=== PATIENT | female | born 1980 | race Caucasian/White ===

== ENCOUNTER 2016-10-15 20:10 | Emergency (ER) | payer OTHER ==
[2016-10-15 20:37] VITALS: BP 129/71; PULSE 66; TEMP 97.9; BMI 29.6
[2016-10-15] MEDS ORDERED: SODIUM CHLORIDE 1,000 ML IV STA (22:38)
--- NOTE | 2016-10-15 22:38 | PDOC ---
History of Present Illness - General History Source: Patient Exam Limitations: No Limitations - History of Present Illness Initial Comments: 10/15/16 22:49 The patient is a 36 year old female with no significant past medical history who presents to the ED with 5 days of nausea and nonbloody vomiting. Patient reports some mild epigastric pain with no diarrhea. He also reports dizziness, but no LOC. Patient reports lack of appetite and unable to tolerate foods/ liquids PO secondary to nausea and vomiting The patient denies fever, chills, cough, SOB, chest pain, and palpitations. The patient denies dysuria, hematuria, urgency, and frequency. Allergies: NKDA Social History: No alcohol, tobacco, or drug use reported. Past Surgical History: None reported PCP: Dr. Carly Su <Thuy Terry - Last Filed: 10/15/16 22:49> - General History Source: Patient <Lalo Rivers - Last Filed: 10/16/16 02:19> - General Chief Complaint: Nausea/Vomiting Stated Complaint: NAUSEA/VOMITING Time Seen by Provider: 10/15/16 22:38 Past History <Thuy Terry - Last Filed: 10/15/16 22:49> - Past Medical History Asthma: No Cancer: No Cardiac Disorders: No Diabetes: No HTN: No Seizures: No Thyroid Disease: No - Psycho/Social/Smoking Cessation Hx Suicidal Ideation: No Smoking History: Never smoked Hx Alcohol Use: No Drug/Substance Use Hx: No Hx Substance Use Treatment: No <Lalo Rivers - Last Filed: 10/16/16 02:19> - Past Medical History Allergies/Adverse Reactions: Allergies Allergy/AdvReac Type Severity Reaction Status Date / Time No Known Allergies Allergy Verified 10/15/16 20:34 Home Medications: Ambulatory Orders Famotidine [Pepcid] 40 mg PO BID #20 tablet 10/16/16 Ondansetron [Zofran *Odt*] 4 mg SL TID #30 od.tablet 10/16/16 Review of Systems - Review of Systems Able to Perform ROS?: Yes Comments:: 10/15/16 22:49 CONSTITUTIONAL: +lack of appetite Absent: fever, no chills, no fatigue EYES: Absent: visual changes ENT: Absent: ear pain, no sore throat CARDIOVASCULAR: Absent: chest pain, no palpitations RESPIRATORY: Absent: cough, no SOB GI: +epigastric pain, nausea, vomiting Absent: no constipation, no diarrhea GENITOURINARY: Absent: dysuria, no frequency, no hematuria MUSKULOSKELETAL: Absent: back pain, no arthralgia, no myalgia SKIN: Absent: rash NEURO: +dizzines Absent: headache <Thuy Terry - Last Filed: 10/15/16 22:49> *Physical Exam - Vital Signs Last Vital Signs Temp Pulse Resp BP Pulse Ox 97.9 F 66 18 129/71 98 10/15/16 20:35 10/15/16 20:35 10/15/16 20:35 10/15/16 20:35 10/15/16 20:35 - Physical Exam Comments: 10/15/16 22:50 GENERAL: Diaphoretic. Well-appearing, well-nourished. No apparent distress. HEENT: Normocephalic, atraumatic. PERRL, EOM intact. CARDIOVASCULAR: Normal S1, S2. Regular rate and rhythm. PULMONARY: Clear to auscultation bilaterally. ABDOMEN: Soft, non-distended, non-tender. EXTREMITIES: Normal ROM in all four extremities. No gross deformities. SKIN: Warm, dry. No rash NEUROLOGICAL: No focal neurological deficits. <MaraThuy - Last Filed: 10/15/16 22:49> - Vital Signs Last Vital Signs Temp Pulse Resp BP Pulse Ox 97.9 F 66 18 129/71 98 10/15/16 20:35 10/15/16 20:35 10/15/16 20:35 10/15/16 20:35 10/15/16 20:35 <Lalo Rivers - Last Filed: 10/16/16 02:19> ED Treatment Course - Medications Given in the ED: ED Medications Discontinued Medications Generic Name Dose Route Start Last Admin Trade Name Marekq PRN Reason Stop Dose Admin Ondansetron HCl 4 mg 10/15/16 22:40 10/15/16 22:46 Zofran Injection IVPUSH 10/15/16 22:41 4 mg ONCE STA Administration <Thuy Terry - Last Filed: 10/15/16 22:49> - LABORATORY CBC & Chemistry Diagram: 10/16/16 00:08 <Lalo Rivers - Last Filed: 10/16/16 02:19> Medical Decision Making - Medical Decision Making 10/16/16 02:19 Dr. Rivers: The scribe's documentation has been prepared under my direction and personally reviewed by me in its entirery. I confirm that the note above accurately reflects all work, treatment, procedures, and medical decision making performed by me. <Lalo Rivers - Last Filed: 10/16/16 02:19> *DC/Admit/Observation/Transfer - Attestations Scribe Attestion: 10/15/16 22:50 Documentation prepared by Thuy Terry, acting as biomedical technician for Lalo Rivers MD. <Thuy Terry - Last Filed: 10/15/16 22:49> - Discharge Dispostion Admit: No <Lalo Rivers - Last Filed: 10/16/16 02:19> Diagnosis at time of Disposition: Nausea & vomiting Qualifiers: Vomiting type: unspecified Vomiting Intractability: non-intractable Qualified Code(s): R11.2 - Nausea with vomiting, unspecified - Discharge Dispostion Disposition: HOME Condition at time of disposition: Stable - Referrals Referrals: Carly Villar MD [Primary Care Provider] - - Patient Instructions Printed Discharge Instructions: DI for Nausea -- Adult, DI for Vomiting -- Adult Print Language: MOROCCAN
[2016-10-15] MEDS ORDERED: ONDANSETRON 4 MG/2 ML VIAL IVPUSH STA (22:40)
[2016-10-15] MEDS ORDERED: FAMOTIDINE 20 MG/50 ML IVPB 20 MG in PREMIX 50 IVPB ONE (22:40)
[2016-10-15] MEDS ORDERED: FAMOTIDINE 20 MG/50 ML IVPB 50 ML IVPB ONE (22:43)
[2016-10-15] MEDS ORDERED: ONDANSETRON 4 MG/2 ML VIAL ONE (22:43)
[2016-10-16 00:49] LABS: BASOPHIL 0.5 % (0-2.0); EOSINOPHIL 0.9 % (0-4.5); MCH 26.2 pg (25.7-33.7); MCHC 32.8 g/dl (32.0-36.0); MEAN CELL VOLUME 79.9 fl (80-96); PLATELET COUNT 238 K/MM3 (134-434); RDW 13.9 % (11.6-15.6); WHITE BLOOD COUNT 4.8 K/mm3 (4.0-10.0)
[2016-10-16 00:55] LABS: URINE APPEARANCE CLEAR; URINE BILIRUBIN NEGATIVE (NEGATIVE); URINE BLOOD NEGATIVE (NEGATIVE); URINE COLOR AMBER; URINE GLUCOSE (UA) NEGATIVE (NEGATIVE); URINE KETONE NEGATIVE (NEGATIVE); URINE LEUK ESTERASE NEGATIVE (NEGATIVE); URINE NITRITE NEGATIVE (NEGATIVE); URINE UROBILINOGEN 2.0 E.U/dl E.U./dl (0.2-1.0)
[2016-10-16 01:01] LABS: URINE PROTEIN 1+ (NEGATIVE)
[2016-10-16 02:26] LABS: URINE MUCUS MANY; URINE RBC 1 /hpf (0-3); URINE WBC 1 /hpf (3-5)
[2016-10-16 02:37] LABS: CALCIUM 8.7 mg/dL (8.5-10.1); CREATININE 0.7 mg/dL (0.55-1.02)
== END 2016-10-16 02:26 | disposition home or self-care (01) ==
LOC: JER 20:10
PROC: 3E033GC Introduction of Other Therapeutic Substance into Peripheral Vein, Percutaneous Approach (ICD-10-PCS; principal; 2016-10-15)
PROC: 3E0337Z Introduction of Electrolytic and Water Balance Substance into Peripheral Vein, Percutaneous Approach (ICD-10-PCS; 2016-10-15)
DX: R11.2 Nausea with vomiting, unspecified (principal)
CPT/HCPCS: 36415; 80048; 81003; 81015; 82150; 83690; 83735; 85025; 99282-25

== ENCOUNTER 2017-06-15 05:43 | Emergency (ER) | payer OTHER ==
[2017-06-15 06:26] VITALS: BMI 29.5
[2017-06-15] MEDS ORDERED: ONDANSETRON 4 MG/2 ML VIAL IVPUSH ONE (06:35)
[2017-06-15] MEDS ORDERED: SODIUM CHLORIDE 1,000 ML IV STA (06:35)
[2017-06-15] MEDS ORDERED: morphine CARPU-JECT 4 MG/1 ML DISP.SYRIN IVPUSH ONE (06:35)
[2017-06-15] MEDS ORDERED: PANTOPRAZOLE SODIUM 40 MG in SODIUM CHLORIDE 100 ML IVPB ONE (06:35)
[2017-06-15] MEDS ORDERED: morphine CARPU-JECT 10 MG/1 ML DISP.SYRIN ONE (06:43)
[2017-06-15] MEDS ORDERED: ONDANSETRON 4 MG/2 ML VIAL ONE (06:43)
[2017-06-15] MEDS ORDERED: PANTOPRAZOLE SODIUM 100 ML IVPB ONE (06:43)
--- NOTE | 2017-06-15 06:45 | PDOC ---
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 Patient state symptoms began 1 hour ago w/ epigastric pain/pressure and vomiting. Patient reports last meal was 7pm. Last BM 1 hour ago. LNMP: May 10. Patient denies fever, CP, Back pain, diff breathing, rash, cough, congestion, dysuria, hematuria, or any other complaints at this time. Timing/Duration: reports: other (Sudden Onset.) Quality: reports: moderate Abdominal Pain Onset Location: reports: epigastric Pain Radiation: reports: no radiation Activities at Onset: denies: none, exertion, emotional upset, rest, sleep, no specific activity, eating, working, sexual intercourse, other Past History - Travel Traveled outside of the country in the last 30 days: No Close contact w/someone who was outside of country & ill: No - Past Medical History Allergies/Adverse Reactions: Allergies Allergy/AdvReac Type Severity Reaction Status Date / Time No Known Allergies Allergy Verified 06/15/17 06:24 Home Medications: Ambulatory Orders Famotidine [Pepcid] 40 mg PO BID #20 tablet 10/16/16 Ondansetron [Zofran *Odt*] 4 mg SL TID #30 od.tablet 10/16/16 Asthma: No Cancer: No Cardiac Disorders: No Diabetes: No HTN: No Seizures: No Thyroid Disease: No - Suicide/Smoking/Psychosocial Hx Smoking History: Never smoked Have you smoked in the past 12 months: No Information on smoking cessation initiated: No Hx Alcohol Use: No Drug/Substance Use Hx: No Hx Substance Use Treatment: No Abd/GI Specific PMHX - Complaint Specific PMHX Colitis: No Diverticulitis: No Gall Bladder Disease: No GERD: No Hepatitis: No Irritable Bowel Synd (IBS): No Pancreatitis: No GI Ulcer Disease: No Review of Systems - Review of Systems Able to Perform ROS?: Yes Is the patient limited [place] proficient: No Constitutional: No: Chills, Diaphoresis, Fever Cardiac (ROS): No: Chest Pain, Irregular Heart Rate, Chest Tightness ABD/GI: Yes: Nausea, Vomiting, Abdominal cramping (Epigastric). No: Constipated , Diarrhea, Poor Appetite, Poor Fluid Intake : No: Burning, Dysuria, Flank Pain, Hematuria Musculoskeletal: No: Back Pain Integumentary: No: Bruising, Dryness, Erythema, Rash Neurological: No: Headache All Other Systems: Reviewed and Negative *Physical Exam - Vital Signs Last Vital Signs Temp Pulse Resp BP Pulse Ox 63 14 117/57 100 06/15/17 06:24 06/15/17 06:24 06/15/17 06:24 06/15/17 06:24 - Physical Exam General Appearance: Yes: Nourished, Appropriately Dressed, Moderate Distress. No: Apparent Distress, Mild Distress, Severe Distress Neck: positive: Trachea midline, Normal Thyroid, Supple. negative: Rigid, Stridor, Lymphadenopathy (R), Lymphadenopathy (L), Rigidity, Tender lateral, Tender midline Respiratory/Chest: positive: Lungs Clear, Normal Breath Sounds. negative: Chest Tender, Respiratory Distress, Accessory Muscle Use, Labored Respiration, Rapid RR, Decreased Breath Sounds, Paradoxal Breathing, Rhonchi, Stridor, Wheezing Cardiovascular: positive: Regular Rhythm, Regular Rate Gastrointestinal/Abdominal: positive: Normal Bowel Sounds, Tender, Soft, Guarding, Rebound (Epigastric region), Tenderness (Epigastric region). negative : Distended Musculoskeletal: positive: Normal Inspection. negative: CVA Tenderness, Decreased Range of Motion, Vertebral Tenderness Extremity: positive: Normal Capillary Refill, Normal Inspection, Normal Range of Motion. negative: Pedal Edema, Swelling, Calf Tenderness, Erythema, Inflammation Integumentary: positive: Normal Color, Dry, Warm Neurologic: positive: water carter II-XII NML intact, Fully Oriented, Alert, Normal Mood/ Affect, Normal Response, Motor Strength 5/5 ED Treatment Course - RADIOLOGY Radiology Studies Ordered: Category Date Time Status GALLBLADDER US [US] Stat Ultrasound 06/15/17 06:35 Ordered
[2017-06-15 07:12] LABS: BASOPHIL 0.3 % (0-2.0); EOSINOPHIL 0.2 % (0-4.5); MCH 25.1 pg (25.7-33.7); MCHC 32.6 g/dl (32.0-36.0); MEAN PLT VOLUME 8.2 fl (7.5-11.1); PLATELET COUNT 258 K/MM3 (134-434); RDW 14.2 % (11.6-15.6); WHITE BLOOD COUNT 8.9 K/mm3 (4.0-10.0)
[2017-06-15 07:30] LABS: ALBUMIN 3.5 g/dl (3.4-5.0); AMYLASE 108 U/L (25-115); ANION GAP 8 (8-16); CALCIUM 8.6 mg/dL (8.5-10.1); CO2 24 mmol/L (21-32); CREATININE 0.6 mg/dL (0.55-1.02); GLUCOSE,RANDOM 119 mg/dL (74-106); SGOT/AST 13 U/L (15-37); SGPT/ALT 22 U/L (12-78)
[2017-06-15 07:31] LABS: ALK PHOS 111 U/L (45-117); BILIRUBIN,TOTAL 0.3 mg/dL (0.2-1.0); TOT PROT 7.1 g/dl (6.4-8.2)
--- NOTE | 2017-06-15 07:49 | PDOC ---
*Physical Exam - Vital Signs Last Vital Signs Temp Pulse Resp BP Pulse Ox 63 14 117/57 100 06/15/17 06:24 06/15/17 06:24 06/15/17 06:24 06/15/17 06:24 - Physical Exam Comments: 06/15/17 07:48 pt appears comfortable at this time. General Appearance: Yes: Nourished, Appropriately Dressed HEENT: positive: EOMI, KATERINA Respiratory/Chest: positive: Lungs Clear, Normal Breath Sounds Cardiovascular: positive: Regular Rhythm, Regular Rate Gastrointestinal/Abdominal: positive: Normal Bowel Sounds, Tender (epigastric 3/ 10 pain ) Musculoskeletal: positive: Normal Inspection Extremity: positive: Normal Capillary Refill Integumentary: positive: Normal Color, Dry, Warm Neurologic: positive: Fully Oriented, Alert, Normal Mood/Affect, Normal Response , Motor Strength 01/09 ED Treatment Course - LABORATORY CBC & Chemistry Diagram: 06/15/17 06:50 06/15/17 06:50 - ADDITIONAL ORDERS Additional order review: 06/15/17 06:50 RBC 4.95 MCV 77.0 L MCHC 32.6 RDW 14.2 MPV 8.2 Neutrophils % 78.0 D Lymphocytes % 16.2 D Monocytes % 5.3 Eosinophils % 0.2 Basophils % 0.3 - Medications Given in the ED: ED Medications Discontinued Medications Generic Name Dose Route Start Last Admin Trade Name Marekq PRN Reason Stop Dose Admin Pantoprazole Sodium 40 mg/ 100 mls @ 200 mls/hr 06/15/17 06:35 06/15/17 06:57 Sodium Chloride IVPB 06/15/17 07:04 200 mls/hr ONCE ONE Administration Sodium Chloride 1,000 mls @ 1,000 mls/hr 06/15/17 06:35 06/15/17 06:57 Normal Saline - IV 06/15/17 07:34 1,000 mls/hr ASDIR STA Administration Morphine Sulfate 4 mg 06/15/17 06:35 06/15/17 06:57 Morphine Injection - IVPUSH 06/15/17 06:36 4 mg ONCE ONE Administration Ondansetron HCl 4 mg 06/15/17 06:35 06/15/17 06:57 Zofran Injection IVPUSH 06/15/17 06:36 4 mg ONCE ONE Administration Medical Decision Making - Medical Decision Making 06/15/17 07:48 cc: epigastric pain pt states her pain is improved after medications awaiting US, labs 06/15/17 09:56 US labs reviewed. Pt feels better and wants to go home. will dc home with follow up with Horticulture Superintendent and her PMD. *DC/Admit/Observation/Transfer Diagnosis at time of Disposition: Pain Gastritis Qualifiers: Gastritis type: other gastritis Chronicity: acute Gastritis bleeding: without bleeding Qualified Code(s): K29.00 - Acute gastritis without bleeding; K29.00 - Acute gastritis without bleeding - Discharge Dispostion Disposition: HOME Condition at time of disposition: Good - Referrals Referrals: Carly Villar MD [Primary Care Provider] - Joni Johnson MD [Staff Physician] - - Patient Instructions Additional Instructions: bland diet as tolerated avoid any alcohol, avoid fatty foods, fried foods take over the counter TUMS as needed follow with the risk management specialist Dr. Johnson this week you have been given copies of the labs and the ultrasound to take with you dieta suave makayla tolerado evitar cualquier alcohol, evitar los alimentos grasos, los alimentos fritos antione el contador TUMS segn sea necesario siga con el gastroenterlogo Dr. Johnson esta semana se le winn entregado copias de los laboratorios y el ultrasonido para llevar con usted Print Language: MALTESE
[2017-06-15 08:33] LABS: URINE APPEARANCE CLEAR; URINE BILIRUBIN NEGATIVE (NEGATIVE); URINE BLOOD 2+ (NEGATIVE); URINE COLOR STRAW; URINE GLUCOSE (UA) NEGATIVE (NEGATIVE); URINE KETONE NEGATIVE (NEGATIVE); URINE NITRITE NEGATIVE (NEGATIVE); URINE PROTEIN NEGATIVE (NEGATIVE); URINE UROBILINOGEN NEGATIVE mg/dL (0.2-1.0)
[2017-06-15 08:39] LABS: URINE BACTERIA RARE /hpf (NONE SEEN); URINE MUCUS RARE; URINE RBC 46 /hpf (0-3); URINE WBC <1 /hpf (3-5)
[2017-06-15 09:57] VITALS: BP 100/59; PULSE 71; TEMP 97.9
[2017-06-15 16:38] LABS: URINE LEUK ESTERASE Negative (NEGATIVE)
== END 2017-06-15 10:00 | disposition home or self-care (01) ==
LOC: JER 05:43
PROC: 3E033NZ Introduction of Analgesics, Hypnotics, Sedatives into Peripheral Vein, Percutaneous Approach (ICD-10-PCS; principal; 2017-06-15)
PROC: 3E033GC Introduction of Other Therapeutic Substance into Peripheral Vein, Percutaneous Approach (ICD-10-PCS; 2017-06-15)
PROC: 3E0337Z Introduction of Electrolytic and Water Balance Substance into Peripheral Vein, Percutaneous Approach (ICD-10-PCS; 2017-06-15)
DX: K29.00 Acute gastritis without bleeding (principal)
CPT/HCPCS: 36415; 76705-TC; 80053; 81003; 81015; 82150; 83690; 84703; 85025; 99283-25

== ENCOUNTER 2018-12-17 21:41 | Emergency (ER) | payer OTHER ==
[2018-12-17 22:03] VITALS: BP 102/48; PULSE 91; TEMP 98.6; BMI 28.7
--- NOTE | 2018-12-17 23:59 | PDOC ---
History of Present Illness - General Chief Complaint: Sore Throat Stated Complaint: THROAT PAIN Time Seen by Provider: 12/17/18 23:59 - History of Present Illness Initial Comments: 12/18/18 00:00 38 year old woman with a history of gastritis who presents with 5 days of sore throat and dry cough that is worse at night. She took Tylenol, Advil and Robitussin without relief. No fevers no prdocution mild headache no chest pain, no shortness of breath no long flights or recent travel Past History - Past Medical History Allergies/Adverse Reactions: Allergies Allergy/AdvReac Type Severity Reaction Status Date / Time No Known Allergies Allergy Verified 12/17/18 22:03 Home Medications: Ambulatory Orders Benzonatate [Tessalon Pearls -] 100 mg PO TID #21 capsule 12/18/18 Asthma: No Cancer: No Cardiac Disorders: No COPD: No Diabetes: No HTN: No Seizures: No Thyroid Disease: No - Surgical History Abdominal Surgery: No - Immunization History Immunization Up to Date: No - Suicide/Smoking/Psychosocial Hx Smoking History: Never smoked Have you smoked in the past 12 months: No Information on smoking cessation initiated: No Hx Alcohol Use: No Drug/Substance Use Hx: No Substance Use Type: None Hx Substance Use Treatment: No *Physical Exam - Vital Signs Last Vital Signs Temp Pulse Resp BP Pulse Ox 98.6 F 91 H 18 102/48 L 100 12/17/18 22:01 12/17/18 22:01 12/17/18 22:01 12/17/18 22:01 12/17/18 22:01 - Physical Exam Comments: 12/18/18 01:13 negative exam Medical Decision Making - Medical Decision Making 12/18/18 01:12 ED Course ddx viral syndrome vs bronchitis r/o pna vs strep group a strep: negative 12/18/18 02:54 *DC/Admit/Observation/Transfer Diagnosis at time of Disposition: Viral syndrome, Sore throat - Discharge Dispostion Disposition: HOME Condition at time of disposition: Stable Decision to Admit order: No - Prescriptions Prescriptions: Benzonatate [Tessalon Pearls -] 100 mg PO TID #21 capsule - Referrals Referrals: [facility] [Provider Group] - Patient Instructions Printed Discharge Instructions: DI for Viral Pharyngitis Additional Instructions: You were seen in the ED for complaints of cough and sore throat In the ED you were evaluated with labwork and imaging. Your results were unremarkable. There does not appear to be an acute need for immediate hospitalization. You are advised to follow up with your Primary Care Physician within 1 week. You were given a referral to our Internal Medicine clinic. You were given a prescription for Tessalon Perle cough medication. Please take as indicated. Return to the ED immediately if you experience worsening cough, blood in the cough, chest pain, shortness of breath, fever, nausea, vomiting or loss of consciousness. Usted fue visto en el servicio de urgencias por quejas de tos y dolor de garganta. En el servicio de urgencias se le evalu con trabajo de laboratorio e imgenes. Peggy resultados no fueron notables. No parece janell carol necesidad aguda de hospitalizacin inmediata. Se recomienda realizar un seguimiento con brian mdico de atencin primaria dentro de 1 semana. Le dieron carol referencia a nuestra clnica de medicina interna. Recibieron carol receta para el medicamento para la tos Tessalon Perle. Por favor tome makayla se indica. Regrese a la romaine de urgencias de inmediato si experimenta un empeoramiento de la tos, jordi al toser, dolor en el pecho, dificultad para respirar, fiebre, nuseas, vmitos o prdida del conocimiento. - Post Discharge Activity
--- NOTE | 2018-12-18 00:39 | PDOC ---
Attending Attestation - Resident Resident Name: Eva Linder - ED Attending Attestation I have performed the following: I have examined & evaluated the patient, The case was reviewed & discussed with the resident, I agree w/resident's findings & plan - HPI HPI: 12/19/18 19:50 Pt comes with cough and sore throat. Afebrile in the ER. No significant PMHx. - Physicial Exam PE: 12/19/18 19:50 Agree with resident exam. - Medical Decision Making 12/19/18 19:50 Pt is rapid strep negative and cxr normal. We will discharge with tessalon perles for cough. No need for abx at this time. Pt can follow with PMD or clinic.
[2018-12-18 01:48] LABS: HCG,QUALITATIVE URINE Negative
[2018-12-18 01:57] LABS: EPI CELLS 3.1 /HPF (0-5/HPF); PH,URINE 5.5 (5.0-8.0); URINE APPEARANCE CLEAR; URINE BILIRUBIN NEGATIVE (NEGATIVE); URINE CASTS 4 /hpf (0-8); URINE COLOR YELLOW; URINE GLUCOSE (UA) NEGATIVE (NEGATIVE); URINE KETONE NEGATIVE (NEGATIVE); URINE LEUK ESTERASE 1+ (NEGATIVE); URINE NITRITE NEGATIVE (NEGATIVE); URINE PROTEIN NEGATIVE (NEGATIVE); URINE RBC 2 /hpf (0-4); URINE WBC 7 /hpf (0-5)
--- NOTE | 2018-12-20 10:36 | EKG ---
Test Reason : Blood Pressure : / mmHG Vent. Rate : 081 BPM Atrial Rate : 081 BPM P-R Int : 166 ms QRS Dur : 078 ms QT Int : 388 ms P-R-T Axes : 030 081 045 degrees QTc Int : 450 ms NORMAL SINUS RHYTHM NORMAL ECG NO PREVIOUS ECGS AVAILABLE Confirmed by HARSHAL HOPE MD ([id number]) on 12/20/2018 10:36:10 AM Referred By: Confirmed By:HARSHAL HOPE MD
== END 2018-12-18 03:09 | disposition home or self-care (01) ==
LOC: JER 21:41 → JERFT 21:41 → JER 12-18 03:09
DX: J02.0 Streptococcal pharyngitis (principal); B34.9 Viral infection, unspecified
CPT/HCPCS: 71045-TC-FY; 81003; 84703; 87070; 87880; 93005; 93010; 99282-25

== ENCOUNTER 2019-08-21 02:33 | Inpatient (IN) | payer OTHER ==
--- NOTE | 2019-08-21 03:56 | PDOC ---
History of Present Illness - General Chief Complaint: Pain Stated Complaint: PAIN - History of Present Illness Initial Comments: Juliette Abel is a 39yo woman with no reported medical problems who presents to the ED with right upper abdominal pain and nausea since Thursday. She reports that the pain started after she ate soup for dinner. She tried taking ibuprofen at home without relief of the pain. She reports persistent pain that does not change with eating, bowel movements, or position. She denies any diarrhea, constipation, recent travel, unusual foods, sick contacts, or previous episodes of pain. Past History - Past Medical History Allergies/Adverse Reactions: Allergies Allergy/AdvReac Type Severity Reaction Status Date / Time No Known Allergies Allergy Verified 08/21/19 02:39 Home Medications: Ambulatory Orders Acetaminophen [Tylenol] 650 mg PO PRN 12/18/18 Benzonatate [Tessalon Pearls -] 100 mg PO TID #21 capsule 12/18/18 Asthma: No Cancer: No Cardiac Disorders: No COPD: No Diabetes: No HTN: No Seizures: No Thyroid Disease: No - Surgical History Abdominal Surgery: No - Immunization History Immunization Up to Date: No - Psycho Social/Smoking Cessation Hx Smoking History: Never smoked Have you smoked in the past 12 months: No Information on smoking cessation initiated: No Hx Alcohol Use: No Drug/Substance Use Hx: No Substance Use Type: None Hx Substance Use Treatment: No Review of Systems - Review of Systems Comments:: General: No fevers, no chills, no weight or appetite change, no malaise HEENT: No changes in vision, no changes in hearing, no congestion, no sore throat CV: No chest pain, no palpitations, no LE edema Pulm: No SOB, no cough, no wheezing GI: See HPI : No frequency, no urgency, no dysuria Musc: No back pain, no joint swelling, no recent injury Skin: No rash, no lesions, no erythema Endo: No excessive thirst, no heat/cold intolerance Heme: No unusual bruising or bleeding, no swollen glands Neuro: No syncope, no numbness/tingling, no focal weakness Vasc: No claudication Psych: No recent change in mood, no SI or HI *Physical Exam - Vital Signs Last Vital Signs Temp Pulse Resp BP Pulse Ox 98.3 F 83 20 125/77 98 08/21/19 02:36 08/21/19 02:36 08/21/19 02:36 08/21/19 02:36 08/21/19 02:36 - Physical Exam General: Comfortable, no acute distress HEENT: PERRL, EOMI, MMM, voice normal, normal neck ROM, no LAD Cards: RRR, no murmur appreciated Pulm: Comfortable on room air, clear to auscultation bilaterally Abd: Soft, nondistended. TTP in RUQ. No rebound, no guarding. Questionable gimenez's sign Ext: Atraumatic. No LE edema. ROM intact. WWP Skin: Normal color, no rashes or lesions Neuro: A&Ox3, CN grossly intact, normal speech, motor/sensory grossly intact and symmetric Psych: Mood appropriate to situation ED Treatment Course - LABORATORY CBC & Chemistry Diagram: 08/21/19 04:28 08/21/19 04:28 Medical Decision Making - Medical Decision Making 08/21/19 03:46 Juliette Abel is a 39yo woman with no reported medical problems who presents to the ED with right upper abdominal pain and nausea since Thursday. - Suspect gallbladder pathology inc biliary colic, less likely cholecystitis w/ o fever or vomiting. Possibly pancreatitis. Less likely pulmonary complaint as she does not have cough, fever, but cannot exclude. - CBC, CMP, mag, coags, T&S for possible surgical pathology - IVF, acetaminophen - POCUS, will need formal US as well 08/21/19 06:51 - Labs unremarkable - POCUS abd completed, no stones seen in gallbladder - Pt reports minimal improvement in pain. Has been burping frequently. Will give famotidine and maalox for continued symptoms 08/21/19 07:13 - Sign out given to Dr Yoder for the remainder of her ED care. Discussed with Dr Yuval Lugo PGY2 Discharge - Discharge Information Problems reviewed: Yes Clinical Impression/Diagnosis: RUQ pain - Follow up/Referral - Patient Discharge Instructions - Post Discharge Activity
[2019-08-21] MEDS ORDERED: ACETAMINOPHEN 1000 MG/100 ML VIAL (NON FORMULARY) IVPB ONE (04:29)
[2019-08-21] MEDS ORDERED: SODIUM CHLORIDE 0.9% 500 ML INFUS.BAG IV ONE (04:29)
[2019-08-21] MEDS ORDERED: ACETAMINOPHEN INJECTION 100 ML IVPB ONE (04:45)
[2019-08-21 05:22] LABS: BASO % 0.3 % (0-2.0); EOS % 0.3 % (0-4.5); HEMATOCRIT 39.8 % (32.4-45.2); HEMOGLOBIN 13.4 GM/dL (10.7-15.3); LYMPH % 18.4 % (8-40); MCH 27.9 pg (25.7-33.7); MCHC 33.8 g/dl (32.0-36.0); MEAN CELL VOLUME 82.7 fl (80-96); MEAN PLT VOLUME 8.1 fl (7.5-11.1); MONO % 4.5 % (3.8-10.2); NEUT % 76.5 % (42.8-82.8); PLATELET COUNT 273 K/MM3 (134-434); RBC 4.81 M/mm3 (3.60-5.2); RDW 12.8 % (11.6-15.6); WHITE BLOOD COUNT 7.1 K/mm3 (4.0-10.0)
[2019-08-21 05:40] LABS: INR 0.9 (0.83-1.09); PROTHROMBIN TIME (PATIENT) 10.6 SEC (9.7-13.0)
[2019-08-21 05:43] LABS: ACTIVATED PTT 38.7 SECONDS (25.2-36.5)
[2019-08-21 05:52] LABS: ALBUMIN 3.9 g/dl (3.4-5.0); BILIRUBIN,TOTAL 0.2 mg/dL (0.2-1); BLOOD UREA NITROGEN 20.2 mg/dL (7-18); CALCIUM 8.9 mg/dL (8.5-10.1); CREATININE 0.7 mg/dL (0.55-1.3); POTASSIUM 4.4 mmol/L (3.5-5.1); TOT PROT 8.2 g/dl (6.4-8.2)
--- NOTE | 2019-08-21 06:15 | PDOC ---
Attending Attestation - Resident Resident Name: Francesca Lugo - ED Attending Attestation I have performed the following: I have examined & evaluated the patient, The case was reviewed & discussed with the resident, I agree w/resident's findings & plan, Exceptions are as noted - HPI HPI: 08/21/19 06:10 Ms. Abel is a 39 yo F with no significant past medical history She presents to the ER with a complaint of RUQ abdominal pain Symptoms began the day prior to arrival in the ER Pain began after eating soup Pain is described as sharp, located in the right upper quadrant, no radiation to the back Patient has not had symptoms like this before. Patient denies fevers or chills. Patient denies recent travel, ill contacts. No diarrhea. No skin changes. - Physicial Exam PE: 08/21/19 06:14 GENERAL: The patient is in no acute distress. ENT: Ears normal, nares patent, oropharynx clear without exudates. Moist mucous membranes. NECK: Normal range of motion LUNGS: Breath sounds equal, clear to auscultation bilaterally. No wheezes, and no crackles. HEART:Regular rate and rhythm, normal S1 and S2 without murmur, rub or gallop. ABDOMEN: Soft, RUQ and epigastric tenderness to palpation, no involuntary guarding, no rebound EXTREMITIES: Normal range of motion, no edema. NEUROLOGICAL: Cranial nerves II through XII grossly intact. Normal speech. No focal neurological deficits. SKIN: Warm, Dry, normal turgor, no rashes or lesions noted. - Medical Decision Making 08/21/19 06:14 39-year-old female presenting to the emergency department with a complaint of abdominal pain located in the right upper quadrant status post eating soup. No prior episodes like this Differential diagnosis includes but is not limited to: Biliary colic, gastritis, pancreatitis, SBO, colitis Will do: Labs Bedside ultrasound Analgesia Reassess Laboratory Tests 08/21/19 08/21/19 08/21/19 04:28 04:28 05:02 WBC 7.1 Hgb 13.4 Hct 39.8 Plt Count 273 BUN 20.2 H Creatinine 0.7 AST 21 ALT 43 Creatine Kinase 113 Troponin I < 0.02 Lipase 181 Pending bedside ultrasound Pending reassessment U/S pending
[2019-08-21] MEDS ORDERED: MAG HYDROX/AL HYDROX/SIMETH 30 ML UNIT-DOSE CUP PO ONE (06:52)
[2019-08-21] MEDS ORDERED: FAMOTIDINE 20 MG/50 ML IVPB 20 MG/50 ML MG IVPB ONE ×2 (06:52→06:56)
[2019-08-21] MEDS ORDERED: MAG HYDROX/AL HYDROX/SIMETH 30 ML UNIT-DOSE CUP ONE (06:56)
[2019-08-21] MEDS ORDERED: ONDANSETRON 4 MG/2 ML VIAL IVPUSH ONE (10:02)
[2019-08-21] MEDS ORDERED: ONDANSETRON 4 MG/2 ML VIAL ONE (10:31)
[2019-08-21] MEDS: SODIUM CHLORIDE 1,000 ML IV SCH ×2 (10:41→21:26)
--- NOTE | 2019-08-21 11:07 | HP ---
CHIEF COMPLAINT: RUQ Abdominal Pain PCP: Deisy Burnett HISTORY OF PRESENT ILLNESS: Pt is a 39 y/o F with no significant past medical history who presented to [facility] due to RUQ abdominal pain. Pain commenced this past Thursday and described as a knife like pain, 8/10 in pain severity, and constant in nature. Endorses nausea, subjective fever, headache, and chills. Pt has taken Advil but this has not mitigated her symptoms. Pt states she has never experienced this type of pain before. Of note, pt does endorse she often becomes nauseas and develops abdominal pain after she eats. Denies chest pain, shortness of breath, vomiting , or LOC. PMH denies SocialHx- Denies SurgHx-Denies FamHx- Father alcoholism. Mother HTN NKDA ER course was notable for: (1) Gallstone at level of neck measuring 2.1cm without sonographic evidence of acute cholecystitis. Hepatomegaly with fatty infiltration versus hepatocellular disease. (2) (3) HOME MEDICATIONS: Home Medications Medication Instructions Recorded Acetaminophen [Tylenol] 650 mg PO PRN 12/18/18 Benzonatate [Tessalon Pearls -] 100 mg PO TID #21 capsule 12/18/18 REVIEW OF SYSTEMS CONSTITUTIONAL: PRESENT fever, chills, loss of appetite HEENT: Absent: rhinorrhea, nasal congestion, throat pain, throat swelling, difficulty swallowing, mouth swelling, ear pain, eye pain, visual changes CARDIOVASCULAR: Absent: chest pain, syncope, palpitations, irregular heart rate, lightheadedness , peripheral edema RESPIRATORY: Absent: cough, shortness of breath, dyspnea with exertion, orthopnea, wheezing, stridor, hemoptysis GASTROINTESTINAL: Absent: abdominal pain, abdominal distension, nausea, vomiting, diarrhea, constipation, melena, hematochezia GENITOURINARY: Absent: dysuria, frequency, urgency, hesitancy, hematuria, flank pain, genital pain MUSCULOSKELETAL: Absent: myalgia, arthralgia, joint swelling, back pain, neck pain SKIN: Absent: rash, itching, pallor HEMATOLOGIC/IMMUNOLOGIC: Absent: easy bleeding, easy bruising, lymphadenopathy, frequent infections ENDOCRINE: Absent: unexplained weight gain, unexplained weight loss, heat intolerance, cold intolerance NEUROLOGIC: Absent: headache, focal weakness or paresthesias, dizziness, unsteady gait, seizure, mental status changes, bladder or bowel incontinence PSYCHIATRIC: Absent: anxiety, depression, suicidal or homicidal ideation, hallucinations. PHYSICAL EXAMINATION Vital Signs - 24 hr 08/21/19 08/21/19 02:36 07:30 Temperature 98.3 F 97.9 F Pulse Rate 83 Pulse Rate [ 69 Left Radial] Respiratory 20 16 Rate Blood Pressure 125/77 Blood Pressure 107/56 L [Left Arm] O2 Sat by Pulse 98 94 L Oximetry (%) GENERAL: NAD. HEAD: Normal with no signs of trauma. EYES: EOMI Sclera Clear. EARS, NOSE, THROAT: MMM NECK: Supple LUNGS: CTAB HEART: RRR ABDOMEN: ++Wade's Sign. BS+. No guarding or rigidity. MUSCULOSKELETAL: FROM LOWER EXTREMITIES: No CCE NEUROLOGICAL: Cranial nerves II-XII intact. Normal speech. PSYCHIATRIC: Cooperative. Good eye contact. Appropriate mood and affect. SKIN: Warm, dry, normal turgor, no rashes or lesions noted, normal capillary refill. Laboratory Results - last 24 hr 08/21/19 08/21/19 08/21/19 04:28 04:28 05:02 WBC 7.1 RBC 4.81 Hgb 13.4 Hct 39.8 MCV 82.7 MCH 27.9 D MCHC 33.8 RDW 12.8 Plt Count 273 MPV 8.1 Absolute Neuts (auto) 5.4 Neutrophils % 76.5 Lymphocytes % 18.4 Monocytes % 4.5 Eosinophils % 0.3 Basophils % 0.3 Nucleated RBC % 0 PT with INR 10.60 INR 0.90 PTT (Actin FS) 38.7 H Sodium 137 Potassium 4.4 Chloride 104 Carbon Dioxide 24 Anion Gap 9 BUN 20.2 H Creatinine 0.7 Est GFR (CKD-EPI)AfAm 125.61 Est GFR (CKD-EPI)NonAf 108.38 Random Glucose 116 H Calcium 8.9 Magnesium Total Bilirubin 0.2 AST 21 ALT 43 Alkaline Phosphatase 122 H Creatine Kinase Troponin I Total Protein 8.2 Albumin 3.9 Lipase 181 Blood Type Antibody Screen 08/21/19 08/21/19 08/21/19 05:02 05:02 05:02 WBC RBC Hgb Hct MCV MCH MCHC RDW Plt Count MPV Absolute Neuts (auto) Neutrophils % Lymphocytes % Monocytes % Eosinophils % Basophils % Nucleated RBC % PT with INR Cancelled INR Cancelled PTT (Actin FS) Sodium Potassium Chloride Carbon Dioxide Anion Gap BUN Creatinine Est GFR (CKD-EPI)AfAm Est GFR (CKD-EPI)NonAf Random Glucose Calcium Magnesium Total Bilirubin AST ALT Alkaline Phosphatase Creatine Kinase Troponin I Total Protein Albumin Lipase Cancelled Blood Type O POSITIVE Antibody Screen Negative 08/21/19 08/21/19 05:02 05:02 WBC RBC Hgb Hct MCV MCH MCHC RDW Plt Count MPV Absolute Neuts (auto) Neutrophils % Lymphocytes % Monocytes % Eosinophils % Basophils % Nucleated RBC % PT with INR INR PTT (Actin FS) Sodium Potassium Chloride Carbon Dioxide Anion Gap BUN Creatinine Est GFR (CKD-EPI)AfAm Est GFR (CKD-EPI)NonAf Random Glucose Calcium Magnesium 2.0 Total Bilirubin AST ALT Alkaline Phosphatase Creatine Kinase 113 Troponin I < 0.02 Total Protein Albumin Lipase Blood Type Antibody Screen ASSESSMENT/PLAN: Pt is a 39 y/o F with no significant past medical history who presented to [facility] due to RUQ abdominal pain. #Symptomatic Cholelithiasis - RUQ Ultrasound: Gallstone at level of neck measuring 2.1cm without sonographic evidence of acute cholecystitis. Hepatomegaly with fatty infiltration versus hepatocellular disease. -++Wade's sign. No leukocytosis, no recorded fevers -Surgery on Board, Dr Lal. Will come and evaluate patient later. -NPO for possible lap Asndy -IVF@125cc/hr -Morphine 2 mg Q8H PRN with pain scale -Ofirmev Q6G PRN with pain scale -ABx per Surgery #FEN NS@125cc/hr Monitor Electrolytes NPO #DVT ppx; HEP Sq TID #Dispo: Med-Surg Visit type - Emergency Visit Emergency Visit: Yes ED Registration Date: 08/21/19 Care time: The patient presented to the Emergency Department on the above date and was hospitalized for further evaluation of their emergent condition. - New Patient This patient is new to me today: Yes Date on this admission: 08/21/19 - Critical Care Critical Care patient: No ATTENDING PHYSICIAN STATEMENT I saw and evaluated the patient. I reviewed the resident's note and discussed the case with the resident. I agree with the resident's findings and plan as documented. SUBJECTIVE: OBJECTIVE: ASSESSMENT AND PLAN:
--- NOTE | 2019-08-21 11:10 | PDOC ---
*Physical Exam - Vital Signs Last Vital Signs Temp Pulse Resp BP Pulse Ox 97.9 F 69 16 107/56 L 94 L 08/21/19 07:30 08/21/19 07:30 08/21/19 07:30 08/21/19 07:30 08/21/19 07:30 ED Treatment Course - LABORATORY CBC & Chemistry Diagram: 08/21/19 04:28 08/21/19 04:28 - ADDITIONAL ORDERS Additional order review: Laboratory Results 08/21/19 08/21/19 08/21/19 05:02 05:02 05:02 PT with INR INR PTT (Actin FS) Sodium Potassium Chloride Carbon Dioxide Anion Gap BUN Creatinine Est GFR (CKD-EPI)AfAm Est GFR (CKD-EPI)NonAf Random Glucose Calcium Magnesium 2.0 Total Bilirubin AST ALT Alkaline Phosphatase Creatine Kinase 113 Troponin I < 0.02 Total Protein Albumin Lipase Blood Type O POSITIVE Antibody Screen Negative 08/21/19 08/21/19 08/21/19 05:02 05:02 05:02 PT with INR Cancelled 10.60 INR Cancelled 0.90 PTT (Actin FS) 38.7 H Sodium Potassium Chloride Carbon Dioxide Anion Gap BUN Creatinine Est GFR (CKD-EPI)AfAm Est GFR (CKD-EPI)NonAf Random Glucose Calcium Magnesium Total Bilirubin AST ALT Alkaline Phosphatase Creatine Kinase Troponin I Total Protein Albumin Lipase Cancelled Blood Type Antibody Screen 08/21/19 04:28 PT with INR INR PTT (Actin FS) Sodium 137 Potassium 4.4 Chloride 104 Carbon Dioxide 24 Anion Gap 9 BUN 20.2 H Creatinine 0.7 Est GFR (CKD-EPI)AfAm 125.61 Est GFR (CKD-EPI)NonAf 108.38 Random Glucose 116 H Calcium 8.9 Magnesium Total Bilirubin 0.2 AST 21 ALT 43 Alkaline Phosphatase 122 H Creatine Kinase Troponin I Total Protein 8.2 Albumin 3.9 Lipase 181 Blood Type Antibody Screen 08/21/19 04:28 RBC 4.81 MCV 82.7 MCHC 33.8 RDW 12.8 MPV 8.1 Neutrophils % 76.5 Lymphocytes % 18.4 Monocytes % 4.5 Eosinophils % 0.3 Basophils % 0.3 - Medications Given in the ED: ED Medications Discontinued Medications Generic Name Dose Route Start Last Admin Trade Name Freq PRN Reason Stop Dose Admin Acetaminophen 1,000 mg 08/21/19 04:29 08/21/19 05:03 Ofirmev Injection - IVPB 08/21/19 04:30 1,000 mg ONCE ONE Administration Al Hydroxide/Mg Hydroxide 30 ml 08/21/19 06:52 08/21/19 06:54 Mylanta Oral Suspension - PO 08/21/19 06:53 30 ml ONCE ONE Administration Famotidine/Sodium Chloride 20 mg in 50 mls @ 100 mls/hr 08/21/19 06:52 06:55 Pepcid 20 Mg Premixed Ivpb - IVPB 08/21/19 07:21 100 mls/hr ONCE ONE Administration Ondansetron HCl 4 mg 08/21/19 10:02 08/21/19 10:30 Zofran Injection IVPUSH 08/21/19 10:03 4 mg ONCE ONE Administration Sodium Chloride 1,000 ml 08/21/19 04:29 08/21/19 05:03 Normal Saline - IV 08/21/19 04:30 1,000 ml ONCE ONE Administration Medical Decision Making - Medical Decision Making 08/21/19 11:06 39yo woman with no reported medical problems who presents to the ED with right upper abdominal pain and nausea starting 2 days ago. -will followup US 08/21/19 11:07 US with adequately distended GB with intraluminal stone measuring 2.1 cm at the neck of the gallbladder without GB wall thickening or pericholecystic fluid. On reassessment, patient continues to complain of pain and nausea with RUQ ttp on exam and 1 episode of yellow emesis consulted Dr Lal for surgical evaluation; upon review of imaging she agrees this patient will require surgical intervention; recommending NPO, mIVF, admit for OR this afternoon vs tomorrow 08/21/19 11:10 admitted to med/surg under Dr Berrios Discharge - Discharge Information Problems reviewed: Yes Clinical Impression/Diagnosis: RUQ pain, Symptomatic cholelithiasis Condition: Fair - Admission Yes - Follow up/Referral - Patient Discharge Instructions - Post Discharge Activity
[2019-08-21] MEDS ORDERED: morphine CARPU-JECT 4 MG/1 ML DISP.SYRIN IVPUSH PRN (11:53)
[2019-08-21] MEDS ORDERED: ACETAMINOPHEN 1000 MG/100 ML VIAL (NON FORMULARY) IVPB PRN ×2 (11:54→12:39)
--- NOTE | 2019-08-21 14:22 | PN ---
Teaching Attending Note Name of Resident: Georges Lora ATTENDING PHYSICIAN STATEMENT I saw and evaluated the patient. I reviewed the resident's note and discussed the case with the resident. I agree with the resident's findings and plan as documented. SUBJECTIVE: RUQ abdominal pain, nausea. No vomiting. Chills, no fever. No diarrhea/melena/hematochezia. OBJECTIVE: Afebrile, Hemodynamically Stable. Last Vital Signs Temp Pulse Resp BP Pulse Ox 97.7 F 72 16 115/59 L 98 08/21/19 12:27 08/21/19 12:27 08/21/19 12:27 08/21/19 12:08/21/19 12:27 HEENT - Atraumatic, Normocephalic. Heart - S1, S2, RRR Lungs - clear to auscultation Abdomen - Soft, mild RUQ tenderness on deep palpation. Bowel Sounds normal Extremities - no edema, no calf tenderness Neuro - AAO X 3. Tone/Power normal all 4 extremities. Laboratory Results - last 24 hr 08/21/19 08/21/19 08/21/19 04:28 04:28 05:02 WBC 7.1 RBC 4.81 Hgb 13.4 Hct 39.8 MCV 82.7 MCH 27.9 D MCHC 33.8 RDW 12.8 Plt Count 273 MPV 8.1 Absolute Neuts (auto) 5.4 Neutrophils % 76.5 Lymphocytes % 18.4 Monocytes % 4.5 Eosinophils % 0.3 Basophils % 0.3 Nucleated RBC % 0 PT with INR 10.60 INR 0.90 PTT (Actin FS) 38.7 H Sodium 137 Potassium 4.4 Chloride 104 Carbon Dioxide 24 Anion Gap 9 BUN 20.2 H Creatinine 0.7 Est GFR (CKD-EPI)AfAm 125.61 Est GFR (CKD-EPI)NonAf 108.38 Random Glucose 116 H Calcium 8.9 Magnesium Total Bilirubin 0.2 AST 21 ALT 43 Alkaline Phosphatase 122 H Creatine Kinase Troponin I Total Protein 8.2 Albumin 3.9 Lipase 181 Blood Type Antibody Screen 08/21/19 08/21/19 08/21/19 05:02 05:02 05:02 WBC RBC Hgb Hct MCV MCH MCHC RDW Plt Count MPV Absolute Neuts (auto) Neutrophils % Lymphocytes % Monocytes % Eosinophils % Basophils % Nucleated RBC % PT with INR Cancelled INR Cancelled PTT (Actin FS) Sodium Potassium Chloride Carbon Dioxide Anion Gap BUN Creatinine Est GFR (CKD-EPI)AfAm Est GFR (CKD-EPI)NonAf Random Glucose Calcium Magnesium Total Bilirubin AST ALT Alkaline Phosphatase Creatine Kinase Troponin I Total Protein Albumin Lipase Cancelled Blood Type O POSITIVE Antibody Screen Negative 08/21/19 08/21/19 05:02 05:02 WBC RBC Hgb Hct MCV MCH MCHC RDW Plt Count MPV Absolute Neuts (auto) Neutrophils % Lymphocytes % Monocytes % Eosinophils % Basophils % Nucleated RBC % PT with INR INR PTT (Actin FS) Sodium Potassium Chloride Carbon Dioxide Anion Gap BUN Creatinine Est GFR (CKD-EPI)AfAm Est GFR (CKD-EPI)NonAf Random Glucose Calcium Magnesium 2.0 Total Bilirubin AST ALT Alkaline Phosphatase Creatine Kinase 113 Troponin I < 0.02 Total Protein Albumin Lipase Blood Type Antibody Screen Current Medications Generic Name Dose Route Start Last Admin Trade Name Freq PRN Reason Stop Dose Admin Acetaminophen 1,000 mg 08/21/19 12:39 Ofirmev Injection - IVPB Q6H PRN Pain Level 4 - 10 Heparin Sodium (Porcine) 5,000 unit 08/21/19 14:00 Heparin - SQ TID KIKA Sodium Chloride 1,000 mls @ 125 mls/hr 08/21/19 10:15 08/21/19 10:41 Normal Saline - IV 125 mls/hr ASDIR KIKA Administration Home Medications Medication Instructions Recorded NK [No Known Home Medication] 08/21/19 ASSESSMENT AND PLAN: 39 year old female with no significant PMH, presents with 3 da histry of increasing RUQ abdominal discomfort, associated with eating, nausea. No vomiting. No fever. no diarrhea/melena/hematochezia. Biliary Colic No fever, no leukocytosis. No Abx given. Abdo US - No evidence of Acute Cholecystitis. Gallstone at neck of GB. Hepatomegaly with fatty infiltrate. LFTs normal. Surgery consulted for biliary colic due to cholestasis. Awaiting further recommendations from Surgery No acute medical issues NPO/IV fluids/Analgesia PRN. DVT Px - Heparin SQ.
[2019-08-21] MEDS: HEPARIN NA (PORCINE) 5,000 UNITS/ML 1ML VIAL SQ SCH ×2 (15:21→21:28)
--- NOTE | 2019-08-21 23:21 | CONSULT ---
Consult Consult Specialty:: General Surgery Referred by:: Phyllis Yoder Reason for Consultation:: large gallstone in gb neck, RUQ pain - History of Present Illness Chief Complaint: RUQ pain, n/v, back pain History of Present Illness: 39yo F with no PMH/PSH presented with RUQ pain beginning Thursday associated with N/V, chills, headache and upper back pain. She reports some constipation, but last BM was Thursday morning. The pain got worse and she ultimately came to ER, where she had essentially normal labs, and US showed distended gallbladder with 2.1cm stone in the neck, without signs of cholecystitis. Alk phos was a touch over normal, and BUN was elevated. She was admitted to medicine, given IV fluids and pain medication, and surgery was asked to assess. She is seen and examined in bed, just back from the bathroom. She reports no more pain or tenderness. She has been NPO. No fevers or nausea today. 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 denies: Fever Eyes: denies: Blurred Vision, Recent Change in Vision HENT: denies: Difficult Swallowing, Throat Pain Neck: denies: Pain on Movement, Stiffness Cardiovascular: denies: Chest Pain, Palpitations Respiratory: denies: Cough, SOB Gastrointestinal: reports: Abdominal Pain, Constipation, Nausea, Vomiting. denies: Diarrhea Genitourinary: denies: Burning, Dysuria Musculoskeletal: reports: Back Pain. denies: Joint Pain, Muscle Pain Integumentary: denies: Change in Color, Rash Neurological: reports: Dizziness, Headache Psychiatric: denies: Anxiety, Depression Physical Exam Vital Signs: Vital Signs Temperature 98.9 F 08/21/19 19:55 Pulse Rate 65 08/21/19 19:55 Respiratory Rate 17 08/21/19 19:55 Blood Pressure 114/65 08/21/19 19:55 O2 Sat by Pulse Oximetry (%) 98 08/21/19 19:55 Constitutional: Yes: No Distress, Calm, Obese Eyes: Yes: Conjunctiva Clear, EOM Intact. No: Sclera Icterus HENT: Yes: Atraumatic, Normocephalic Neck: Yes: Supple, Trachea Midline Cardiovascular: Yes: Regular Rate and Rhythm Respiratory: Yes: Regular, CTA Bilaterally Gastrointestinal: Yes: Soft, Abdomen, Obese, Hypoactive Bowel Sounds. No: Tenderness, Tenderness, Epigastrium ...Rectal Exam: Yes: Deferred Renal/: No: CVA Tenderness - Left, CVA Tenderness - Right Musculoskeletal: No: Joint Stiffness, Joint Swelling Extremities: No: Cool, Cyanosis Edema: No Peripheral Pulses WNL: Yes Integumentary: No: Jaundice, Rash Neurological: Yes: Alert, Oriented Psychiatric: Yes: Alert, Oriented Labs: CBC, BMP 08/21/19 04:28 08/21/19 04:28 CMP Sodium 137 mmol/L (136-145) 08/21/19 04:28 Potassium 4.4 mmol/L (3.5-5.1) 08/21/19 04:28 Chloride 104 mmol/L (98-107) 08/21/19 04:28 Carbon Dioxide 24 mmol/L (21-32) 08/21/19 04:28 Anion Gap 9 MMOL/L (8-16) 08/21/19 04:28 BUN 20.2 mg/dL (7-18) H 08/21/19 04:28 Creatinine 0.7 mg/dL (0.55-1.3) 08/21/19 04:28 Est GFR (CKD-EPI)AfAm 125.61 08/21/19 04:28 Est GFR (CKD-EPI)NonAf 108.38 08/21/19 04:28 Random Glucose 116 mg/dL (74-106) H 08/21/19 04:28 Calcium 8.9 mg/dL (8.5-10.1) 08/21/19 04:28 Magnesium 2.0 mg/dL (1.8-2.4) 08/21/19 05:02 Total Bilirubin 0.2 mg/dL (0.2-1) 08/21/19 04:28 AST 21 U/L (15-37) 08/21/19 04:28 ALT 43 U/L (13-61) 08/21/19 04:28 Alkaline Phosphatase 122 U/L (45-117) H 08/21/19 04:28 Creatine Kinase 113 U/L (26-192) 08/21/19 05:02 Troponin I < 0.02 ng/ml (0.00-0.05) 08/21/19 05:02 Total Protein 8.2 g/dl (6.4-8.2) 08/21/19 04:28 Albumin 3.9 g/dl (3.4-5.0) 08/21/19 04:28 Lipase Cancelled 08/21/19 05:02 INR, PTT INR 0.90 (0.83-1.09) 08/21/19 05:02 Imaging - Results Ultrasound: Report Reviewed, Image Reviewed (2cm+ gallstone lodged in neck of gallbladder, no signs cholecystitis, cbd normal) Problem List - Problems (1) Calculus of gallbladder w/o mention of cholecystitis or obstruction Assessment/Plan: impacted gallstone in neck of gallbladder NPO/IVF until postop pain meds prn - nonnarcotics first line DVT prophylaxis Discussed with patient risks, benefits and alternatives of laparoscopic possible open cholecystectomy, including but not limited to bleeding, infection , injury to adjacent structures, bile leak or ductal injury, intraabdominal abscess, incisional hernia, need for further procedures; alternatives include delayed or no surgery - risks of this include recurrence of biliary colic, cholecystitis, cholangitis, pancreatitis and possible sequelae. Patient desires to proceed with operation - will take to OR Thursday for above. Informed consent signed for same. Code(s): K80.20 - CALCULUS OF GALLBLADDER W/O CHOLECYSTITIS W/O OBSTRUCTION Qualifiers: Cholecystitis presence: without cholecystitis Biliary obstruction: without biliary obstruction Qualified Code(s): K80.20 - Calculus of gallbladder without cholecystitis without obstruction (2) RUQ pain Code(s): R10.11 - RIGHT UPPER QUADRANT PAIN (3) Nausea & vomiting Code(s): R11.2 - NAUSEA WITH VOMITING, UNSPECIFIED Qualifiers: Vomiting type: unspecified Vomiting Intractability: non-intractable Qualified Code(s): R11.2 - Nausea with vomiting, unspecified (4) Class 1 obesity due to excess calories with body mass index (BMI) of 31.0 to 31.9 in adult Code(s): E66.09 - OTHER OBESITY DUE TO EXCESS CALORIES; Z68.31 - BODY MASS INDEX (BMI) 31.0-31.9, ADULT Qualifiers: Serious obesity comorbidity presence: without serious comorbidity Qualified Code(s): E66.09 - Other obesity due to excess calories; Z68.31 - Body mass index (BMI) 31.0-31.9, adult
[2019-08-22 00:52] VITALS: BMI 34.5
[2019-08-22] MEDS ORDERED: cefOXitin SODIUM 2 GM VIAL (RESTRICTED TO ID) IVPB ONE ×3 (02:17→14:17)
[2019-08-22] MEDS: HEPARIN NA (PORCINE) 5,000 UNITS/ML 1ML VIAL SQ SCH ×3 (05:33→21:33)
[2019-08-22] MEDS: SODIUM CHLORIDE 1,000 ML IV SCH ×2 (05:34→17:30)
[2019-08-22 06:50] LABS: BASO % 0.3 % (0-2.0); EOS % 1.2 % (0-4.5); HEMATOCRIT 35.1 % (32.4-45.2); HEMOGLOBIN 12.1 GM/dL (10.7-15.3); LYMPH % 40.9 % (8-40); MCH 28.1 pg (25.7-33.7); MCHC 34.3 g/dl (32.0-36.0); MEAN CELL VOLUME 81.8 fl (80-96); MEAN PLT VOLUME 7.9 fl (7.5-11.1); MONO % 7.3 % (3.8-10.2); NEUT % 50.3 % (42.8-82.8); PLATELET COUNT 248 K/MM3 (134-434); RBC 4.29 M/mm3 (3.60-5.2)
[2019-08-22 07:09] LABS: ALBUMIN 3.1 g/dl (3.4-5.0); BILIRUBIN,TOTAL 0.4 mg/dL (0.2-1); CREATININE 0.6 mg/dL (0.55-1.3); MAGNESIUM 2.1 mg/dL (1.8-2.4); PHOSPHOROUS 2.7 mg/dL (2.5-4.9); POTASSIUM 3.8 mmol/L (3.5-5.1)
[2019-08-22] MEDS ORDERED: MIDAZOLAM HCL 2 MG/2 ML SINGLE DOSE VIAL ONE (13:40)
[2019-08-22] MEDS ORDERED: fentaNYL CITRATE 250 MCG/5 ML VIAL ONE (13:40)
[2019-08-22] MEDS ORDERED: PROPOFOL 20 ML ONE (13:40)
[2019-08-22] MEDS ORDERED: ROCURONIUM BROMIDE 50 MG/5 ML SYRINGE ONE ×2 (13:40→15:13)
[2019-08-22] MEDS ORDERED: SUCCINYLCHOLINE CHLORIDE 200 MG/10 ML SYRINGE ONE (13:40)
[2019-08-22] MEDS ORDERED: BUPIVACAINE HCL/PF 0.25% (2.5MG/ML) 10 ML VIAL ONE ×2 (13:42→14:14)
[2019-08-22] MEDS ORDERED: LIDOCAINE HCL 1%, 10 MG/ML (20ML VIAL) ONE (13:42)
[2019-08-22] MEDS ORDERED: BUPIVACAINE HCL/PF 0.25% (2.5MG/ML) 10 ML VIAL IJ ONE (14:23)
--- NOTE | 2019-08-22 14:51 | EKG ---
Test Reason : Blood Pressure : / mmHG Vent. Rate : 076 BPM Atrial Rate : 076 BPM P-R Int : 162 ms QRS Dur : 076 ms QT Int : 398 ms P-R-T Axes : 024 084 053 degrees QTc Int : 447 ms NORMAL SINUS RHYTHM NORMAL ECG WHEN COMPARED WITH ECG OF 18-DEC-2018 01:00, NO SIGNIFICANT CHANGE WAS FOUND Confirmed by ASHLEY POWELL MD ([id number]) on 08/22/2019 2:51:06 PM Referred By: Confirmed By:ASHLEY POWELL MD
--- NOTE | 2019-08-22 15:00 | PN ---
Physical Exam: SUBJECTIVE: Patient seen and examined. States that abd pain has mostly improved. She is resting comfortably in bed. Patient seen by surgery, will go to the OR today for cholecystectomy. OBJECTIVE: Vital Signs Period Temp Pulse Resp BP Sys/Cavazos Pulse Ox Last 24 Hr 98.3 F-98.9 F 62-69 16-18 93-125/51-66 98-99 GENERAL: The patient is awake, alert, and fully oriented, in no acute distress. HEAD: Normal with no signs of trauma. EYES: EOMI, no scleral icterus ENT: Moist mucous membranes NECK: trachea midline, supple LUNGS: Breath sounds equal, clear to auscultation bilaterally, no wheezes, no crackles, no accessory muscle use. HEART: RRR, no murmur noted ABDOMEN: Soft, nondistended, normoactive bowel sounds. Mild tenderness to palpation over RUQ EXTREMITIES: 2+ pulses, warm, well-perfused, no edema. NEUROLOGICAL: Cranial nerves II through XII grossly intact. Normal speech, gait not observed. PSYCH: appropriate mood and affect SKIN: Warm, dry Laboratory Results - last 24 hr 08/22/19 08/22/19 08/22/19 06:15 06:15 13:00 WBC 5.0 RBC 4.29 Hgb 12.1 Hct 35.1 MCV 81.8 MCH 28.1 MCHC 34.3 RDW 13.0 Plt Count 248 MPV 7.9 Absolute Neuts (auto) 2.5 Neutrophils % 50.3 D Lymphocytes % 40.9 H D Monocytes % 7.3 Eosinophils % 1.2 D Basophils % 0.3 Nucleated RBC % 0 Sodium 140 Potassium 3.8 Chloride 108 H Carbon Dioxide 26 Anion Gap 5 L BUN 7.0 Creatinine 0.6 Est GFR (CKD-EPI)AfAm 132.14 Est GFR (CKD-EPI)NonAf 114.01 Random Glucose 106 Calcium 8.0 L Phosphorus 2.7 Magnesium 2.1 Total Bilirubin 0.4 AST 20 ALT 33 Alkaline Phosphatase 76 Total Protein 6.0 L Albumin 3.1 L Serum , Qual Negative Active Medications Generic Name Dose Route Start Last Admin Trade Name Freq PRN Reason Stop Dose Admin Acetaminophen 1,000 mg 08/21/19 12:39 Ofirmev Injection - IVPB Q6H PRN Pain Level 4 - 10 Heparin Sodium (Porcine) 5,000 unit 08/21/19 14:00 08/22/19 05:33 Heparin - SQ Not Given TID [facility] Sodium Chloride 1,000 mls @ 125 mls/hr 08/21/19 10:15 08/22/19 05:34 Normal Saline - IV 125 mls/hr ASDIR KIKA Administration ASSESSMENT/PLAN: 39 y/o/f with no significant past medical history who presented to [facility] due to RUQ abdominal pain. Patient admitted for cholecystectomy. #Symptomatic Cholelithiasis - RUQ Ultrasound: Gallstone at level of neck measuring 2.1cm without sonographic evidence of acute cholecystitis. Hepatomegaly with fatty infiltration versus hepatocellular disease. - ++Wade's sign. No leukocytosis, no recorded fevers - Surgery on board, recs appreciated. - Patient to go for lap kierra today. - NPO - Analgesia as per surgery - ABx per Surgery #FEN - NS@125cc/hr - Monitor and replete lytes as needed - Diet as per Surgery #Prophylaxis - AC as per surgery #Disposition - Lap Kierra today - Admitted to med surg Visit type - Emergency Visit Emergency Visit: Yes ED Registration Date: 08/21/19 Care time: The patient presented to the Emergency Department on the above date and was hospitalized for further evaluation of their emergent condition. - New Patient This patient is new to me today: Yes Date on this admission: 08/22/19 - Critical Care Critical Care patient: No ATTENDING PHYSICIAN STATEMENT I saw and evaluated the patient. I reviewed the resident's note and discussed the case with the resident. I agree with the resident's findings and plan as documented. SUBJECTIVE: OBJECTIVE: ASSESSMENT AND PLAN:
[2019-08-22] MEDS ORDERED: NEOSTIGMINE METHYLSULFATE 0.5 MG/ML - 10 ML MDV ONE (15:25)
[2019-08-22] MEDS ORDERED: GLYCOPYRROLATE 0.2 MG/1 ML VIAL ONE (15:33)
--- NOTE | 2019-08-22 15:45 | PN ---
Teaching Attending Note Name of Resident: Kenisha Camejo ATTENDING PHYSICIAN STATEMENT I saw and evaluated the patient. I reviewed the resident's note and discussed the case with the resident. I agree with the resident's findings and plan as documented. SUBJECTIVE: RUQ abdominal pain, nausea improving. No vomiting. No fever. No diarrhea/melena/hematochezia. OBJECTIVE: Afebrile, Hemodynamically Stable. Last Vital Signs Temp Pulse Resp BP Pulse Ox 98.3 F 64 18 93/51 L 99 08/22/19 07:00 08/22/19 07:00 08/22/19 07:00 08/22/19 07:00 08/22/19 09:00 Heart - S1, S2, RRR Lungs - clear to auscultation Abdomen - Soft, mild RUQ tenderness on deep palpation. Bowel Sounds normal Extremities - no edema, no calf tenderness Neuro - AAO X 3. Tone/Power normal all 4 extremities. Laboratory Results - last 24 hr 08/22/19 08/22/19 08/22/19 06:15 06:15 13:00 WBC 5.0 RBC 4.29 Hgb 12.1 Hct 35.1 MCV 81.8 MCH 28.1 MCHC 34.3 RDW 13.0 Plt Count 248 MPV 7.9 Absolute Neuts (auto) 2.5 Neutrophils % 50.3 D Lymphocytes % 40.9 H D Monocytes % 7.3 Eosinophils % 1.2 D Basophils % 0.3 Nucleated RBC % 0 Sodium 140 Potassium 3.8 Chloride 108 H Carbon Dioxide 26 Anion Gap 5 L BUN 7.0 Creatinine 0.6 Est GFR (CKD-EPI)AfAm 132.14 Est GFR (CKD-EPI)NonAf 114.01 Random Glucose 106 Calcium 8.0 L Phosphorus 2.7 Magnesium 2.1 Total Bilirubin 0.4 AST 20 ALT 33 Alkaline Phosphatase 76 Total Protein 6.0 L Albumin 3.1 L Serum , Qual Negative Current Medications Generic Name Dose Route Start Last Admin Trade Name Freq PRN Reason Stop Dose Admin Acetaminophen 1,000 mg 08/21/19 12:39 Ofirmev Injection - IVPB Q6H PRN Pain Level 4 - 10 Heparin Sodium (Porcine) 5,000 unit 08/21/19 14:00 08/22/19 15:07 Heparin - SQ Not Given TID KIKA Sodium Chloride 1,000 mls @ 125 mls/hr 08/21/19 10:15 08/22/19 05:34 Normal Saline - IV 125 mls/hr ASDIR KIKA Administration ASSESSMENT AND PLAN: 39 year old female with no significant PMH, presents with 3 day history of increasing RUQ abdominal discomfort, associated with eating, nausea. No vomiting. No fever. No diarrhea/melena/hematochezia. Biliary Colic No fever, no leukocytosis. Abdo US - No evidence of Acute Cholecystitis. Gallstone at neck of GB. Hepatomegaly with fatty infiltrate. LFTs normal. Surgery consulted for biliary colic due to cholestasis - scheduled for lap kierra today. No acute medical issues NPO/IV fluids/Analgesia PRN. DVT Px - Heparin SQ.
--- NOTE | 2019-08-22 15:59 | OP ---
Operative Note - Note: Operative Date: 08/22/19 Pre-Operative Diagnosis: impacted gallstone; symptomatic cholelithiasis Operation: laparoscopic cholecystectomy Findings: some adhesions over gallbladder to liver edge; gallbladder edematous, large stone inside; critical view identified Post-Operative Diagnosis: Other (acute cholecystitis) Surgeon: Christian [facility] [employer] Teacher: Barbara Walker Anesthesiologist/MANAGER UNIX: Jennifer Diaz Anesthesia: General, Local (20ml 0.25% marcaine) Specimens Removed: gallbladder to pathology Estimated Blood Loss (mls): 5 Fluid Volume Replaced (mls): 1,200 (crystalloid) Operative Report Dictated: Yes
[2019-08-22] MEDS ORDERED: IBUPROFEN 800 MG/8 ML IJ IVPB ONE ×2 (16:01→16:02)
--- NOTE | 2019-08-22 16:13 | SURG ---
Surgery Market Development Executive Note Market Development Executive: Barbara Walker PA-C Date of Service: 08/22/19 Diagnosis: impacted gallstone; symptomatic cholelithiasis Procedure: Operation: laparoscopic cholecystectomy I was present for the entirety of the operative procedure. For further detail, please refer to operative report. Visit type - Case Type Case Type: ED Admission - Emergency Emergency Visit: Yes ED Registration Date: 08/21/19 Care time: The patient presented to the Emergency Department on the above date and was hospitalized for further evaluation of their emergent condition. - New patient This patient is new to me today: Yes Date on this admission: 08/22/19
[2019-08-22] MEDS ORDERED: ONDANSETRON 4 MG/2 ML VIAL IVPUSH PRN (17:14)
[2019-08-22] MEDS ORDERED: LACTATED RINGERS SOLUTION 1,000 ML IV SCH (17:15)
[2019-08-22] MEDS: ACETAMINOPHEN 325 MG TABLET (FP) PO SCH (18:24)
[2019-08-22] MEDS: IBUPROFEN 600 MG TABLET (FP) PO SCH (21:33)
[2019-08-23] MEDS: ACETAMINOPHEN 325 MG TABLET (FP) PO SCH ×3 (01:02→11:36)
[2019-08-23] MEDS: IBUPROFEN 600 MG TABLET (FP) PO SCH ×2 (04:16→09:12)
[2019-08-23] MEDS: HEPARIN NA (PORCINE) 5,000 UNITS/ML 1ML VIAL SQ SCH ×2 (05:24→14:19)
[2019-08-23] MEDS: SODIUM CHLORIDE 1,000 ML IV SCH (05:31)
[2019-08-23 08:34] LABS: HEMATOCRIT 33.9 % (32.4-45.2); HEMOGLOBIN 11.5 GM/dL (10.7-15.3); MCH 27.8 pg (25.7-33.7); MCHC 33.9 g/dl (32.0-36.0); MEAN CELL VOLUME 82.2 fl (80-96); MEAN PLT VOLUME 8.2 fl (7.5-11.1); PLATELET COUNT 239 K/MM3 (134-434); RBC 4.12 M/mm3 (3.60-5.2); RDW 12.6 % (11.6-15.6); WHITE BLOOD COUNT 7.6 K/mm3 (4.0-10.0)
[2019-08-23 09:10] LABS: BLOOD UREA NITROGEN 9.9 mg/dL (7-18); CALCIUM 8.4 mg/dL (8.5-10.1); CREATININE 0.6 mg/dL (0.55-1.3); POTASSIUM 3.8 mmol/L (3.5-5.1)
[2019-08-23] MEDS ORDERED: ROCURONIUM BROMIDE 50 MG/5 ML SYRINGE ONE ×2 (11:00)
--- NOTE | 2019-08-23 11:52 | PN ---
Teaching Attending Note Name of Resident: Kenisha Camejo ATTENDING PHYSICIAN STATEMENT I saw and evaluated the patient. I reviewed the resident's note and discussed the case with the resident. I agree with the resident's findings and plan as documented. SUBJECTIVE: RUQ abdominal discomfort post-op, nausea improving. No vomiting. No fever. No diarrhea/melena/hematochezia. OBJECTIVE: Afebrile, Hemodynamically Stable. Last Vital Signs Temp Pulse Resp BP Pulse Ox 99.4 F 72 18 102/56 L 96 08/23/19 09:42 08/23/19 09:42 08/23/19 09:42 08/23/19 09:42 08/23/19 09:00 Heart - S1, S2, RRR Lungs - clear to auscultation Abdomen - Soft, mild RUQ tenderness on deep palpation. Bowel Sounds normal. Trochar sites clean. Extremities - no edema, no calf tenderness Neuro - AAO X 3. Tone/Power normal all 4 extremities. Laboratory Results - last 24 hr 08/22/19 08/23/19 08/23/19 13:00 07:55 07:55 WBC 7.6 RBC 4.12 Hgb 11.5 Hct 33.9 MCV 82.2 MCH 27.8 MCHC 33.9 RDW 12.6 Plt Count 239 MPV 8.2 Sodium 139 Potassium 3.8 Chloride 108 H Carbon Dioxide 23 Anion Gap 8 BUN 9.9 Creatinine 0.6 Est GFR (CKD-EPI)AfAm 132.14 Est GFR (CKD-EPI)NonAf 114.01 Random Glucose 97 Calcium 8.4 L Serum , Qual Negative Current Medications Generic Name Dose Route Start Last Admin Trade Name Denisha PRN Reason Stop Dose Admin Acetaminophen 650 mg 08/22/19 18:00 08/23/19 11:36 Tylenol - PO 650 mg Q6H KIKA Administration Fentanyl 50 mcg 08/22/19 17:14 08/22/19 17:00 Sublimaze Injection - IVPUSH 50 mcg [id number] PRN Administration PAIN-PACU ORDER X 4 DOSES ONLY Heparin Sodium (Porcine) 5,000 unit 08/21/19 14:00 08/23/19 05:24 Heparin - SQ 5,000 unit TID KIKA Administration Lactated Ringer's 1,000 mls @ 75 mls/hr 08/22/19 17:15 08/22/19 18:20 Lactated Ringers Solution IV Not Given ASDIR KIKA Ibuprofen 600 mg 08/22/19 21:00 08/23/19 09:12 Motrin - PO 600 mg Q6H KIKA Administration Ondansetron HCl 4 mg 08/22/19 17:14 Zofran Injection IVPUSH Q6H PRN NAUSEA AND/OR VOMITING ASSESSMENT AND PLAN: 39 year old female with no significant PMH, presents with 3 day history of increasing RUQ abdominal discomfort, associated with eating, nausea. No vomiting. No fever. No diarrhea/melena/hematochezia. Abdo US - No evidence of Acute Cholecystitis. Gallstone at neck of GB. Hepatomegaly with fatty infiltrate. Biliary Colic - POD 1 s/p laparoscopic cholecystectomy No fever, no leukocytosis. LFTs normal. No acute medical issues Advance diet. Analgesia as per Surgery. Medically Stable for discharge once tolerating diet advancement.
--- NOTE | 2019-08-23 12:30 | PN ---
Progress Note, Physician History of Present Illness: s/p lap kierra for impacted stone with findings of acute cholecystitis seen and examined up in chair eating lunch feeling well pain minimal, controlled with alternating tylenol and ibuprofen voiding, ambulating, + flatus, no BM yet incisional pain mainly at umbilicus - Current Medication List Current Medications: Active Medications Acetaminophen (Tylenol -) 650 mg PO Q6H [facility] Last Admin: 08/23/19 11:36 Dose: 650 mg Heparin Sodium (Porcine) (Heparin -) 5,000 unit SQ TID [facility] Last Admin: 08/23/19 05:24 Dose: 5,000 unit Ibuprofen (Motrin -) 600 mg PO Q6H [facility] Last Admin: 08/23/19 09:12 Dose: 600 mg Ondansetron HCl (Zofran Injection) 4 mg IVPUSH Q6H PRN PRN Reason: NAUSEA AND/OR VOMITING - Objective Vital Signs: Vital Signs Temperature 99.4 F 08/23/19 09:42 Pulse Rate 72 08/23/19 09:42 Respiratory Rate 18 08/23/19 09:42 Blood Pressure 102/56 L 08/23/19 09:42 O2 Sat by Pulse Oximetry (%) 96 08/23/19 09:00 Constitutional: Yes: No Distress, Calm, Obese Eyes: Yes: Conjunctiva Clear, EOM Intact. No: Sclera Icterus HENT: Yes: Atraumatic, Normocephalic Gastrointestinal: Yes: Soft, Abdomen, Obese, Distention (mild), Tenderness ( mild epigastric, mostly umbilical incisional), Tenderness, Epigastrium (mild, near incisions). No: Tenderness, Rebound Extremities: No: Cool, Cyanosis Integumentary: Yes: Incision (x4 dressed). No: Jaundice, Rash Wound/Incision: Yes: Steri Strips (under dressings), Dressing Dry and Intact (x4 ). No: Dressing Removed Neurological: Yes: Alert, Oriented Labs: CBC, BMP 08/23/19 07:55 08/23/19 07:55 CMP Sodium 139 mmol/L (136-145) 08/23/19 07:55 Potassium 3.8 mmol/L (3.5-5.1) 08/23/19 07:55 Chloride 108 mmol/L (98-107) H 08/23/19 07:55 Carbon Dioxide 23 mmol/L (21-32) 08/23/19 07:55 Anion Gap 8 MMOL/L (8-16) 08/23/19 07:55 BUN 9.9 mg/dL (7-18) 08/23/19 07:55 Creatinine 0.6 mg/dL (0.55-1.3) 08/23/19 07:55 Est GFR (CKD-EPI)AfAm 132.14 08/23/19 07:55 Est GFR (CKD-EPI)NonAf 114.01 08/23/19 07:55 Random Glucose 97 mg/dL (74-106) 08/23/19 07:55 Calcium 8.4 mg/dL (8.5-10.1) L 08/23/19 07:55 Phosphorus 2.7 mg/dL (2.5-4.9) 08/22/19 06:15 Magnesium 2.1 mg/dL (1.8-2.4) 08/22/19 06:15 Total Bilirubin 0.4 mg/dL (0.2-1) 08/22/19 06:15 AST 20 U/L (15-37) 08/22/19 06:15 ALT 33 U/L (13-61) 08/22/19 06:15 Alkaline Phosphatase 76 U/L (45-117) 08/22/19 06:15 Creatine Kinase 113 U/L (26-192) 08/21/19 05:02 Troponin I < 0.02 ng/ml (0.00-0.05) 08/21/19 05:02 Total Protein 6.0 g/dl (6.4-8.2) L 08/22/19 06:15 Albumin 3.1 g/dl (3.4-5.0) L 08/22/19 06:15 Lipase Cancelled 08/21/19 05:02 Serum , Qual Negative 08/22/19 13:00 Problem List - Problems (1) Calculus of gallbladder w/o mention of cholecystitis or obstruction Assessment/Plan: POD1 s/p laparoscopic cholecystectomy doing well ambulating, voiding, tolerating diet pain controlled with nonnarcotics incisional dressings c/d/i ok for discharge home instructions in d/c plan to f/u 09/02 Problems reviewed: Yes Code(s): K80.20 - CALCULUS OF GALLBLADDER W/O CHOLECYSTITIS W/O OBSTRUCTION Qualifiers: Cholecystitis presence: with cholecystitis Cholecystitis acuity: acute Biliary obstruction: without biliary obstruction Qualified Code(s): K80.00 - Calculus of gallbladder with acute cholecystitis without obstruction (2) RUQ pain Assessment/Plan: much improved Code(s): R10.11 - RIGHT UPPER QUADRANT PAIN (3) Nausea & vomiting Assessment/Plan: resolved Code(s): R11.2 - NAUSEA WITH VOMITING, UNSPECIFIED Qualifiers: Vomiting type: unspecified Vomiting Intractability: non-intractable Qualified Code(s): R11.2 - Nausea with vomiting, unspecified (4) Class 1 obesity due to excess calories with body mass index (BMI) of 31.0 to 31.9 in adult Code(s): E66.09 - OTHER OBESITY DUE TO EXCESS CALORIES; Z68.31 - BODY MASS INDEX (BMI) 31.0-31.9, ADULT Qualifiers: Serious obesity comorbidity presence: without serious comorbidity Qualified Code(s): E66.09 - Other obesity due to excess calories; Z68.31 - Body mass index (BMI) 31.0-31.9, adult
--- NOTE | 2019-08-23 13:11 | DS ---
Physical Exam: SUBJECTIVE: Patient seen and examined. Patient able to tolerate a small amount of breakfast and more for lunch. She has been passing gas. Patient seen actively using her incentive spirometer. She complains of some abd pain but states her pain control is adequate. She denies any chest pain, SOB, cough, fever, chills. OBJECTIVE: Vital Signs Period Temp Pulse Resp BP Sys/Cavazos Pulse Ox Last 24 Hr 98.5 F-99.9 F 63-94 11-20 95-110/49-77 96-987 PHYSICAL EXAM GENERAL: The patient is awake, alert, and fully oriented, in no acute distress. HEAD: Normal with no signs of trauma. EYES: EOMI, no scleral icterus ENT: Moist mucous membranes NECK: trachea midline, supple LUNGS: Breath sounds equal, clear to auscultation bilaterally, no wheezes, no crackles, no accessory muscle use. HEART: RRR, no murmur noted ABDOMEN: Soft, nondistended, normoactive bowel sounds. Mild diffuse tenderness to palpation over abd. Surgical incisions sites covered with dressing, clean/dry /intact EXTREMITIES: 2+ pulses, warm, well-perfused, no edema. NEUROLOGICAL: Normal speech, normal gait. sensation intact throughout PSYCH: appropriate mood and affect SKIN: Warm, dry LABS Laboratory Results - last 24 hr 08/22/19 08/23/19 08/23/19 13:00 07:55 07:55 WBC 7.6 RBC 4.12 Hgb 11.5 Hct 33.9 MCV 82.2 MCH 27.8 MCHC 33.9 RDW 12.6 Plt Count 239 MPV 8.2 Sodium 139 Potassium 3.8 Chloride 108 H Carbon Dioxide 23 Anion Gap 8 BUN 9.9 Creatinine 0.6 Est GFR (CKD-EPI)AfAm 132.14 Est GFR (CKD-EPI)NonAf 114.01 Random Glucose 97 Calcium 8.4 L Serum , Qual Negative HOSPITAL COURSE: Date of Admission:08/21/19 Date of Discharge: 08/23/19 39 y/o/f without any significant PMHx who presented to the ED with three days of worsening RUQ abdominal pain that was associated with eating and nausea. Abdominal ultrasound done on admission showed a gallstone at the neck of the gallbladder without evidence of acute cholecystitis. Patient had a laparoscopic cholecystectomy completed without intra-op or post-op complications. Patient passing gas and tolerated diet well post-op without any issues. Patient given follow up instructions. Minutes to complete discharge: 36 Discharge Summary Problems reviewed: Yes Reason For Visit: SYMPTOMATIC CHOLELITHIASIS Current Active Problems Calculus of gallbladder w/o mention of cholecystitis or obstruction (Acute) Class 1 obesity due to excess calories with body mass index (BMI) of 31.0 to 31.9 in adult (Acute) RUQ pain (Acute) Symptomatic cholelithiasis (Acute) Condition: Good - Instructions Diet, Activity, Other Instructions: Postoperative instructions: You had a laparoscopic cholecystectomy on 08/22/[address] Christian Lal of [facility]. Activity: Resume your usual activities gradually, but no heavy exertion or lifting more than 10-15 pounds for 1 month. Remove dressings 48 hours after surgery; sticky tapes underneath will fall off by themselves. You may shower daily with just the sticky tapes, just pat the incision areas dry. No bath or swimming until skin incisions have healed. Eat lightly at first, but advance to your usual diet as tolerated. Pain: For pain, you may use and alternate Tylenol (acetaminophen) 1-2 pills and/ or ibuprofen 200 mg (1-3 pills) every 6 hours each as needed; this means that you can take one OR the other at 3-hour intervals. Do not take more than 4000mg of acetaminophen in a day. Take medications as prescribed or indicated on the labeling. Follow-up: Call [phone] make your postop appointment (for September 02). Clinic is held in the [facility] on the fifth floor of [facility], [facility], left off the elevators. Call Dr. Lal's office at [phone] if you have: * increasing pain not responsive to pain medication * fever of 101F or higher * vomiting * unusual or increasing bleeding or drainage from wounds * increasing redness or swelling at wound sites Also, see your primary medical doctor within 1-2 weeks, or call to get an appointment with one you have been referred to see. Referrals: [facility] [Provider Group] - 2 Weeks (call to make an appointment with your primary care doctor within 1-2 weeks) Christian Lal MD [Staff Physician] - (CALL [phone] for appointment to see Dr[address] Lal in [facility] at [facility], ask for ThursdaySep 02.) Disposition: HOME - Home Medications Comprehensive Discharge Medication List: Ambulatory Orders Acetaminophen [Tylenol .Regular Strength -] 650 mg PO Q6H tablet 08/23/19 Ibuprofen [Motrin -] 600 mg PO Q6H tablet 08/23/19 This patient is new to me today: No Emergency Visit: Yes ED Registration Date: 08/21/19 Care time: The patient presented to the Emergency Department on the above date and was hospitalized for further evaluation of their emergent condition. Critical Care patient: No - Discharge Referral Referred to [facility] Med P.C.: No ATTENDING PHYSICIAN STATEMENT I saw and evaluated the patient. I reviewed the resident's note and discussed the case with the resident. I agree with the resident's findings and plan as documented. SUBJECTIVE: OBJECTIVE: ASSESSMENT AND PLAN:
[2019-08-23 14:12] VITALS: BP 97/48; PULSE 51; TEMP 97.3
--- NOTE | 2019-08-24 16:13 | PATH ---
Surgical Pathology Report Patient Name: PADMAJA ORTEGA Med. Rec. #: [id number] /Age/Gender: 1980 (Age: 39) / F Account: [id number] Location: [facility] MED/SURG Taken: 08/22/2019 Received: 08/23/2019 Reported: 08/24/2019 Physicians: Michele Fry MD Specimen(s) Received GALLBLADDER Clinical History Symptomatic cholelithiasis Final Diagnosis GALLBLADDER, CHOLECYSTECTOMY: ACUTE AND CHRONIC CHOLECYSTITIS. CHOLELITHIASIS. ONE BENIGN REACTIVE LYMPH NODE. Electronically Signed Florencia Corona M.D. Gross Description Received in formalin, labeled "gallbladder," is a 7.8 x 3.0 x 2.6 cm. gallbladder with a 0.2 cm. in length portion of cystic duct attached. There is a 1.5 cm greatest dimension periductal lymph node present. The outer surface is moreno-pink and varies from smooth to shaggy. The lumen contains green, tenacious bile as well as a 2.4 cm greatest dimension moreno, ovoid cholelith. The mucosa is moreno-green and focally eroded. The wall of the gallbladder is focally edematous and measures up to 0.5 cm. in thickness. Master Barber sections are submitted in 2 cassettes as follows: 1-cystic duct margin and technical sales representative gallbladder; 2-one bisected lymph node. 08/23/2019 [facility]08/23/2019
== END 2019-08-23 14:52 | disposition home or self-care (01) | DRG 263 ==
LOC: JER 02:33 → JERBED 11:11 → J7W 21:04
PROC: 0FT44ZZ Resection of Gallbladder, Percutaneous Endoscopic Approach (ICD-10-PCS; principal; 2019-08-22 12:00)
DX: K80.12 Calculus of gallbladder with acute and chronic cholecystitis without obstruction (principal); R10.11 Right upper quadrant pain; R11.2 Nausea with vomiting, unspecified; E66.09 Other obesity due to excess calories; Z68.31 Body mass index [BMI] 31.0-31.9, adult; R16.2 Hepatomegaly with splenomegaly, not elsewhere classified
CPT/HCPCS: 36415; 71045-TC-FY; 76705-TC; 80048; 80053; 82550; 83690; 83735; 84100; 84484; 84703; 85025; 85027; 85610; 85730; 86850; 86900; 86901; 88304-TC; 93005; 93010; 94760; 99285-25; J0131; J1644; J7030

== ENCOUNTER 2021-08-13 11:57 | Emergency (ER) | payer OTHER ==
[2021-08-13 12:19] VITALS: TEMP 98.7; BMI 29.8
[2021-08-13] MEDS ORDERED: ACETAMINOPHEN 1000 MG/100 ML VIAL IVPB ONE (12:54)
[2021-08-13] MEDS ORDERED: SODIUM CHLORIDE 1,000 ML IV STA (12:54)
[2021-08-13 13:10] LABS: BASO % 0.3 % (0-2.0); EOS % 0.6 % (0-4.5); HEMATOCRIT 38.7 % (32.4-45.2); HEMOGLOBIN 13.3 GM/dL (10.7-15.3); LYMPH % 33.6 % (8-40); MCHC 34.4 g/dl (32.0-36.0); MEAN CELL VOLUME 81.3 fl (80-96); MEAN PLT VOLUME 7.8 fl (7.5-11.1); NEUT % 57.5 % (42.8-82.8); PLATELET COUNT 249 10^3/uL (134-434); RBC 4.76 M/mm3 (3.60-5.2); RDW 12.8 % (11.6-15.6)
[2021-08-13 13:20] LABS: EPI CELLS 19 /uL (0-25.1); HYALINE CASTS 1 /uL (0-3.1); URINE APPEARANCE CLEAR; URINE BACTERIA 411 /uL (0-1359); URINE BILIRUBIN NEGATIVE (NEGATIVE); URINE COLOR YELLOW; URINE GLUCOSE (UA) NEGATIVE (NEGATIVE); URINE KETONE NEGATIVE (NEGATIVE); URINE LEUK ESTERASE 2+ (NEGATIVE); URINE NITRITE NEGATIVE (NEGATIVE); URINE PROTEIN NEGATIVE (NEGATIVE); URINE RBC 23 /uL (0-23.9); URINE WBC 60 /uL (0-25.8)
[2021-08-13 13:32] LABS: HCG,QUALITATIVE URINE Negative
[2021-08-13 13:33] LABS: BLOOD UREA NITROGEN 14.2 mg/dL (7-18); CALCIUM 8.6 mg/dL (8.5-10.1)
[2021-08-13 13:34] LABS: ALBUMIN 3.4 g/dl (3.4-5.0)
[2021-08-13 13:37] LABS: CREATININE 0.6 mg/dL (0.55-1.3)
[2021-08-13 13:38] LABS: BILIRUBIN,TOTAL 0.4 mg/dL (0.2-1); TOT PROT 7.3 g/dl (6.4-8.2)
[2021-08-13] MEDS ORDERED: ACETAMINOPHEN INJECTION 100 ML IVPB ONE (14:43)
[2021-08-13 16:18] VITALS: BP 112/78; PULSE 62
== END 2021-08-13 16:10 | disposition home or self-care (01) ==
LOC: JER 11:57
PROC: 3E0333Z Introduction of Anti-inflammatory into Peripheral Vein, Percutaneous Approach (ICD-10-PCS; principal; 2021-08-13)
PROC: 3E0337Z Introduction of Electrolytic and Water Balance Substance into Peripheral Vein, Percutaneous Approach (ICD-10-PCS; 2021-08-13)
DX: M54.50 Low back pain, unspecified (principal); N39.0 Urinary tract infection, site not specified
CPT/HCPCS: 36415; 76775-TC; 80053; 81003; 83690; 84703; 85025; 86850; 86900; 86901; 87086; 99284-25; J0131

== ENCOUNTER 2024-03-17 11:31 | Emergency (ER) | payer OTHER ==
[2024-03-17 11:55] VITALS: RESP 19; BMI 27.3
[2024-03-17] MEDS ORDERED: METOCLOPRAMIDE HCL INJECTION 10 MG/2 ML VIAL ONE (12:30)
[2024-03-17] MEDS: SODIUM CHLORIDE 0.9% 500 ML INFUS.BAG IV ONE (12:41)
[2024-03-17] MEDS: METOCLOPRAMIDE HCL INJECTION 10 MG/2 ML VIAL IVPB ONE (12:41)
[2024-03-17 12:51] LABS: BASO % 0.3 % (0-2.0); EOS % 0.4 % (0-4.5); HEMATOCRIT 36.9 % (32.4-45.2); HEMOGLOBIN 12.2 GM/dL (10.7-15.3); LYMPH % 20.7 % (8-40); MCH 26.9 pg (25.7-33.7); MEAN CELL VOLUME 81.4 fl (80-96); MEAN PLT VOLUME 7.8 fl (7.5-11.1); MONO % 5.9 % (3.8-10.2); NEUT % 72.7 % (42.8-82.8); PLATELET COUNT 261 10^3/uL (134-434); RBC 4.53 M/mm3 (3.60-5.2); RDW 13.1 % (11.6-15.6); WHITE BLOOD COUNT 8.5 K/mm3 (4.0-10.0)
[2024-03-17 13:18] LABS: POTASSIUM 3.8 mmol/L (3.5-5.1)
[2024-03-17 13:24] LABS: CALCIUM 8.9 mg/dL (8.5-10.1)
[2024-03-17 13:25] LABS: ALBUMIN 3.6 g/dl (3.4-5.0); BLOOD UREA NITROGEN 17.2 mg/dL (7-18)
[2024-03-17 13:27] LABS: CREATININE 0.7 mg/dL (0.55-1.3)
[2024-03-17 13:29] LABS: BILIRUBIN,TOTAL 0.6 mg/dL (0.2-1)
[2024-03-17 14:19] LABS: EPI CELLS 25 /uL (0-25.1); HYALINE CASTS 1 /uL (0-3.1); PH,URINE 6.5 (5.0-8.0); URINE APPEARANCE CLEAR; URINE BACTERIA 4 /uL (0-1359); URINE BILIRUBIN NEGATIVE (NEGATIVE); URINE COLOR YELLOW; URINE GLUCOSE (UA) NEGATIVE (NEGATIVE); URINE KETONE NEGATIVE (NEGATIVE); URINE LEUK ESTERASE TRACE (NEGATIVE); URINE NITRITE NEGATIVE (NEGATIVE); URINE PROTEIN NEGATIVE (NEGATIVE); URINE RBC 52 /uL (0-23.9); URINE WBC 18 /uL (0-25.8)
[2024-03-17 14:51] VITALS: BP 105/63; PULSE 72; TEMP 97.9
== END 2024-03-17 14:51 | disposition home or self-care (01) ==
LOC: JER 11:31
PROC: 3E033GC Introduction of Other Therapeutic Substance into Peripheral Vein, Percutaneous Approach (ICD-10-PCS; principal; 2024-03-17)
DX: R55 Syncope and collapse (principal); R42 Dizziness and giddiness; R11.0 Nausea; R53.1 Weakness; Z20.822 Contact with and (suspected) exposure to COVID-19
CPT/HCPCS: 0241U-QW; 36415; 71045-TC-FY; 80053; 81003; 83735; 84484; 84703; 85025; 87086; 93005; 93010; 99285-25